=== PATIENT | male | born 1990 | race Caucasian/White ===

== ENCOUNTER 2017-02-09 05:47 | Day surgery (SDC) | payer MEDICAID ==
[~2017-02-09] VITALS: Ht 188 cm; Wt 65.8 kg
--- NOTE | ~2017-02-09 | OP ---
PATIENT NAME: YNES FISCHER MEDICAL RECORD: [id number] :89 LOCATION:[facility] ADMISSION DATE: SURGEON: TRICIA BAUTISTA MD DATE OF OPERATION: 02/09/2017 REFERRED BY: Dr. Alvarez. 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 OPERATION PERFORMED: Fistulogram and Duran banding of the fistula in the antecubital space. SURGEON: Tricia Bautista MD ANESTHESIA: General per [employer] with an LMA. PREOPERATIVE NOTE: Mr. 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 Yesterday in [facility], he had a fistulogram with a balloon angioplasty of the proximal vein stenosis and it was decided that he would be referred for a banding procedure. He did have an episode of a transient ischemia in his right hand following that procedure yesterday, which has totally resolved. The patient says he has had previous episodes similar they are not so severe when his fingers became numb and his hand cold, etc. So we thought to have a steel which is related to the high flow fistula as well as recurrent venous stenoses which are aggravated by the high venous flow. Today, I planned to do another fistulogram and to do a Duran banding. PROCEDURE IN DETAIL: Under general anesthesia per [employer], the patient is prepped and draped in a sterile manner. The fistula was accessed with micropuncture technique and this led up to placement of a 6-Austrian introducer. Contrast injection revealed the aneurysmal fistula to be functioning well and there was already some rebound recurrent stenosis of about 40% to 50% diameter reduction in the subclavian and brachiocephalic veins. These do not have great hemodynamic significance apparently and I did not repeat a dilatation of them today. I made a sigmoid shaped incision across the antecubital space and up the arm, a bit on the medial side and exposed the translocated basilic vein beginning about 2 cm above the arterial anastomosis. I inserted a guidewire and a 5-mm diameter angioplasty balloon and placed the angioplasty balloon across the exposed portion of the vein. The balloon was inflated and 2 separate 2-0 Prolene ligatures were tied around the vein over the inflated balloon. After which, the balloon was deflated and removed. A Glidewire was passed in a glide catheter into the arterial anastomosis and contrast injection demonstrated filling and good flow in the fistula with the 2 ligatures easily seen resulting in a significant short area of narrowing. Doppler examination revealed excellent pulsatile continuous flow on both radial and ulnar arteries at the OPERATIVE REPORT [id number] YNES FISCHER wrist. The wound was then irrigated with Ancef and gentamicin solution, it was closed with interrupted inverted 3-0 Vicryl and running intracuticular 4-0 Monocryl and Dermabond glue. It was then dressed with Maxorb Ag, Tegaderm and Cavilon skin prep. The puncture site actually there were two as I had to replace the 6-Austrian introducer once due to kinking of the balloon catheter, anyway, both of these puncture sites were closed with [id number] 2-0 Prolene sutures and dressings of Avitene Ultrafoam and Tegaderm with Cavilon skin prep were applied. The patient will be going home today and continue his routine dialysis schedule, medications and diet. I would like to see him back in my office in about 7-10 days and if possible, leave the original operative dressing on the antecubital space intact until then. All sponges, instruments and needles were accounted for. No drain was used. No surgical specimen was submitted for histopathology and blood loss insignificant and unreplaced. TRANSINT:[id number] Voice Confirmation ID: [id number] DOCUMENT ID: [id number] TRICIA BAUTISTA MD CC: FLAVIO ALVAREZ MD [id number] DICTATION DATE: 02/09/17 1310 CIGAR BANDER: 02/09/17 [address] [facility] 02/09/17 [facility] [address] [place] [address]
[2017-02-09 07:12] LABS: BASOPHILS 0.7 % (0-2); EOSINOPHILS 15.4 % (0-7); HEMATOCRIT 41.2 % (42.0-54.0); HEMOGLOBIN 14.2 g/dL (13.5-17.5); IMMATURE GRANULOCYTES 0.1 % (0-5); LYMPHOCYTES 24.2 % (15-50); MCH 35.1 pg (26.0-34.0); MCHC 34.5 g/dL (31.0-37.0); MCV 101.7 fL (80.0-100.0); MEAN PLATELET VOLUME 9.5 fL (7.4-10.4); MONOCYTES 9.7 % (2-11); NEUTROPHILS 49.9 % (40-80); RBC 4.05 10x6/uL (4.20-6.10); RDW 13.8 % (11.5-14.5); WBC 6.9 10x3/uL (4.8-10.8)
[2017-02-09 07:13] LABS: PLATELET COUNT 100 10x3/uL (130-400)
[2017-02-09 07:20] LABS: INR 1.17 (0.85-1.17); PROTIME 14.8 SECONDS (11.6-15.0)
[2017-02-09 07:21] LABS: ANION GAP 15.7 mmol/L (8-16); APTT 35.4 SECONDS (22.8-39.4); CALCIUM 9.8 mg/dL (8.5-10.1); CARBON DIOXIDE 29.1 mmol/L (21.0-32.0); CREATININE - SERUM 9.6 mg/dL (0.6-1.3); POTASSIUM - SERUM 4.8 mmol/L (3.5-5.1)
[2017-02-09 07:24] VITALS: BP 146/93; Ht 188 cm; Wt 65.8 kg
[2017-02-09] MEDS ORDERED: LOPRESSOR25 MG PO (07:43)
[2017-02-09] MEDS ORDERED: RENVELA800 MG PO (07:43)
[2017-02-09] MEDS ORDERED: HYDROCODON-ACE1 EAC7 PO (12:51)
--- NOTE | 2017-02-09 13:18 | NUR ---
OPA IN AIRWAY ON ADMIT
--- NOTE | 2017-02-09 13:20 | NUR ---
VANCOMYCIN 500MG IN 250CC OF ORMAL SALINE INFUSING ON ADMIT TO RR
--- NOTE | 2017-02-09 14:42 | NUR ---
1430 IV DC WITH CATHER TIP INTACT,
== END 2017-02-09 14:43 | disposition home or self-care (01) ==
LOC: D.OPS 05:47
PROVIDERS: Anesthesiology
DX: T82.590A Other mechanical complication of surgically created arteriovenous fistula, initial encounter (principal); T82.898A Other specified complication of vascular prosthetic devices, implants and grafts, initial encounter; T82.858A Stenosis of other vascular prosthetic devices, implants and grafts, initial encounter; I87.1 Compression of vein